=== PATIENT | female | born 1940 | race Hispanic/Latino ===

== ENCOUNTER 2018-01-03 22:42 | Observation (INO) | payer MEDICARE ==
[2018-01-03 22:43] VITALS: PULSE 60
[2018-01-03 22:53] VITALS: BMI 31.4
[2018-01-03 23:47] LABS: ALB/GLOB RATIO 1.3 (1.1-1.8); ALBUMIN 4.4 g/dL (3.0-4.8); ALT/SGPT 33 U/L (7-56); AMYLASE 47 U/L (35-125); AST/SGOT 27 U/L (14-36); BLOOD UREA NITROGEN 18 mg/dL (7-21); CALCIUM 10.4 mg/dL (8.4-10.5); GFR AFRICAN-AMERICAN > 60; GFR NON-AFRICAN AMERICAN > 60; LIPASE 29 U/L (23-300)
[2018-01-03 23:57] LABS: TROPONIN I < 0.01 ng/mL
[2018-01-04 00:02] LABS: BASO # 0.02 K/mm3 (0.0-2.0); BASO % 0.3 % (0.0-3.0); EOS # 0.1 (0.0-0.7); EOS % 1.7 % (1.5-5.0); GRAN # 4.73 (1.4-6.5); GRAN % 60.9 % (50.0-68.0); LYMPH # 2.5 (1.2-3.4); LYMPH % 32.1 % (22.0-35.0); MEAN CORPUSCULAR HEMOGLOBIN 29.5 pg (25.0-35.0); MEAN CORPUSCULAR HGB CONC 33.9 g/dl (31.0-37.0); MEAN PLATELET VOLUME 9.5 fl (7.0-11.0); MONO # 0.4 (0.1-0.6); RBC 4.4 10^6/uL (3.5-6.1); RED CELL DISTRIBUTION WIDTH 14.1 % (11.5-14.5); WHITE BLOOD COUNT 7.8 10^3/ul (4.5-11.0)
[2018-01-04 00:24] LABS: INR 0.99 (0.93-1.08); PARTIAL THROMBOPLASTIN TIME 28.6 Seconds (25.1-36.5); PROTHROMBIN TIME 11.3 SECONDS (9.4-12.5)
--- NOTE | 2018-01-04 00:39 | ED PDOC ---
Arrival/HPI - General Chief Complaint: GI Problem Time Seen by Provider: 01/03/18 22:48 Historian: Patient - History of Present Illness Narrative History of Present Illness (Text): 01/04/18 00:36 77 year old female, whose past medical history includes a history of a GI bleed , who presents to the emergency department complaining of bright red blood per rectum for several hours. Patient denies any fevers, chills, chest pain, shortness of breath, abdominal pain, nausea, vomiting, diarrhea, back pain, neck pain, headache, dizziness, or any other complaint. Time/Duration: 4-6 hours Symptom Onset: Sudden Symptom Course: Unchanged Activities at Onset: Light Context: Home Past Medical History - Provider Review Nursing Documentation Reviewed: Yes - Reproductive Menopause: Yes - Cardiac Hx Pacemaker: No - Pulmonary Hx Asthma: Yes - Neurological Hx Paralysis: No - Hematological/Oncological Hx Blood Transfusions: No - Musculoskeletal/Rheumatological Hx Musculoskeletal Disorders: Yes - Gastrointestinal Hx Gastrointestinal Disorders: Yes - Psychiatric Hx Emotional Abuse: No Hx Physical Abuse: No Hx Substance Use: No - Anesthesia Hx Anesthesia Reactions: No Hx Malignant Hyperthermia: No - Suicidal Assessment Feels Threatened In Home Enviroment: No Family/Social History - Physician Review Nursing Documentation Reviewed: Yes Family/Social History: Unknown Family HX Smoking Status: Former Smoker Hx Alcohol Use: No Hx Substance Use: No Hx Substance Use Treatment: No Allergies/Home Meds Allergies/Adverse Reactions: Allergies EGG Adverse Reaction (Severe, Verified 01/07/18 13:38) DIARRHEA Home Medications: Home Meds Medication Instructions Recorded Confirmed Alprazolam [Xanax] 0.25 mg PO BID PRN 06/13/15 01/07/18 Gabapentin [Neurontin] 300 mg PO BID 06/13/15 01/07/18 Hydrochlorothiazide [HCTZ] 25 mg PO DAILY 06/13/15 01/07/18 Morphine [Morphine Immediate 15 mg PO Q12H 06/13/15 01/07/18 Release Tab] Levothyroxine Sodium [Levo-T] 25 mg PO DAILY 01/03/18 01/07/18 oxyCODONE/Acetaminophen [Percocet 1 tab PO BID 01/03/18 01/07/18 5/325 mg Tab] Allopurinol [Zyloprim] 100 mg PO BID 01/05/18 01/07/18 Atorvastatin [Lipitor] 20 mg PO QPM 01/05/18 01/07/18 Digoxin [Digoxin] 0.125 mg PO DAILY 01/05/18 01/07/18 Cyclobenzaprine [Flexeril] 5 mg PO DAILY 01/07/18 01/07/18 Esomeprazole Magnesium [Nexium] 40 mg PO DAILY 01/07/18 01/07/18 Review of Systems - Physician Review All systems were reviewed & negative as marked: Yes - Review of Systems Constitutional: Normal Eyes: Normal ENT: Normal Respiratory: Normal. absent: SOB, Cough Cardiovascular: Normal. absent: Chest Pain Gastrointestinal: Normal, Hematochezia. absent: Abdominal Pain, Diarrhea, Nausea, Vomiting Genitourinary Female: Normal. absent: Dysuria, Frequency Musculoskeletal: Normal. absent: Back Pain, Neck Pain Skin: Normal. absent: Rash Neurological: Normal. absent: Headache Endocrine: Normal Hemo/Lymphatic: Normal Psychiatric: Normal Physical Exam Vital Signs Reviewed: Yes Vital Signs Temp Pulse Resp BP Pulse Ox 01/04/18 03:22 78 18 127/76 97 01/03/18 22:58 98.2 F 105 H 22 175/109 H 92 L Temperature: Afebrile Blood Pressure: Hypertensive Pulse: Tachycardic Respiratory Rate: Normal Appearance: Positive for: Well-Appearing, Non-Toxic, Comfortable Pain Distress: None Mental Status: Positive for: Alert and Oriented X 3 - Systems Exam Head: Present: Atraumatic, Normocephalic Pupils: Present: PERRL Extroacular Muscles: Present: EOMI Conjunctiva: Present: Normal Mouth: Present: Moist Mucous Membranes Neck: Present: Normal Range of Motion. No: Meningeal Signs, MIDLINE TENDERNESS , Paraspinal Tenderness Respiratory/Chest: Present: Clear to Auscultation, Good Air Exchange. No: Respiratory Distress, Accessory Muscle Use Cardiovascular: Present: Regular Rate and Rhythm, Normal S1, S2. No: Murmurs Abdomen: No: Tenderness, Distention, Peritoneal Signs Rectal: Present: Hemorrhoids. No: Occult Blood Back: Present: Normal Inspection. No: CVA Tenderness, Midline Tenderness, Paraspinal Tenderness Upper Extremity: Present: Normal Inspection. No: Cyanosis, Edema Lower Extremity: Present: Normal Inspection. No: Edema, CALF TENDERNESS Neurological: Present: GCS=15, CN II-XII Intact, Speech Normal Skin: Present: Warm, Dry, Normal Color. No: Rashes Psychiatric: Present: Alert, Oriented x 3, Normal Insight, Normal Concentration Medical Decision Making ED Course and Treatment: 01/04/18 00:40 Impression: 77 year old female presents to the emergency department complaining of bright red blood per rectum. Plan: -- Labs -- EKG -- CXR -- Reassess and disposition case d/w dr soler will obs for gi bleed Progress Notes: - Lab Interpretations Lab Results: 01/03/18 23:15 01/03/18 23:15 Lab Results 01/03/18 23:15: Sodium 141, Potassium 3.6, Chloride 99, Carbon Dioxide 30, Anion Gap 16, BUN 18, Creatinine 0.9, Est GFR ( Amer) > 60, Est GFR (Non- Af Amer) > 60, Random Glucose 132 H, Calcium 10.4, Total Bilirubin 0.8, AST 27, ALT 33, Alkaline Phosphatase 104, Lactate Dehydrogenase 420, Total Creatine Kinase 56, Troponin I < 0.01, Total Protein 7.7, Albumin 4.4, Globulin 3.3, Albumin/Globulin Ratio 1.3, Amylase 47, Lipase 29 01/03/18 23:15: PT 11.3, INR 0.99, APTT 28.6 01/03/18 23:15: WBC 7.8, RBC 4.40, Hgb 13.0, Hct 38.3, MCV 87.0, MCH 29.5, MCHC 33.9, RDW 14.1, Plt Count 175, MPV 9.5, Gran % 60.9, Lymph % (Auto) 32.1, Dickson % (Auto) 5.0, Eos % (Auto) 1.7, Baso % (Auto) 0.3, Gran # 4.73, Lymph # (Auto) 2.5, Dickson # (Auto) 0.4, Eos # (Auto) 0.1, Baso # (Auto) 0.02 - RAD Interpretation Radiology Orders: 01/03/18 23:05 CHEST PORTABLE [RAD] Stat - EKG Interpretation EKG Interpretation (Text): 01/04/18 04:[address] s changes - Medication Orders Current Medication Orders: Discontinued Medications Acetaminophen (Tylenol 325mg Tab) 650 mg PO Q4H PRN PRN Reason: Pain, Mild (1-3) Allopurinol (Zyloprim) 100 mg PO DAILY [facility] Last Admin: 01/05/18 10:33 Dose: 100 mg Alprazolam (Xanax) 0.25 mg PO BID PRN; Protocol PRN Reason: Anxiety Stop: 01/11/18 07:54 Atorvastatin Calcium (Lipitor) 20 mg PO HS [facility] Last Admin: 01/04/18 21:06 Dose: 20 mg Hydrochlorothiazide (Hydrodiuril) 25 mg PO DAILY [facility] Last Admin: 01/05/18 10:33 Dose: 25 mg Sodium Chloride (Sodium Chloride 0.9%) 1,000 mls @ 100 mls/hr IV .Q10H STA Stop: 01/04/18 11:16 Last Admin: 01/04/18 04:25 Dose: 100 mls/hr eMAR Start Stop Document 01/04/18 04:25 BR (Rec: 01/04/18 04:26 BR [id number]) Intravenous Solution Start Date 01/04/18 Start Time 04:25 Sodium Chloride (Sodium Chloride 0.9%) 1,000 mls @ 80 mls/hr IV .[id number] [facility] Last Admin: 01/05/18 00:10 Dose: 80 mls/hr eMAR Start Stop Document 01/05/18 00:10 [employer] (Rec: 01/05/18 00:10 [employer] [id number]) Intravenous Solution Start Date 01/05/18 Start Time 00:10 Levothyroxine Sodium (Synthroid) 25 mcg PO DAILY [facility] Last Admin: 01/05/18 10:33 Dose: 25 mcg Morphine Sulfate (Morphine Immediate Release Tab) 15 mg PO Q12H [facility] Last Admin: 01/05/18 10:33 Dose: 15 mg MAR Pain Assessment Document 01/05/18 10:33 ANTOALL (Rec: 01/05/18 10:33 ANTOALL [id number] ) Pain Reassessment Is this a pain reassessment? Yes Sleep Is patient sleeping during reassessment? No Presence of Pain Presence of Pain No Non-Formulary Medication (Allopurinol [Allopurinol]) 100 mg PO DAILY [facility] Last Admin: 01/05/18 10:33 Dose: Non-Formulary Medication (Hydrochlorothiazide [Hctz]) 25 mg PO DAILY [facility] Oxycodone/Acetaminophen (Percocet 5/325 Mg Tab) 1 tab PO BID PRN PRN Reason: Pain, moderate (4-7) Stop: 01/07/18 10:01 Pneumococcal Polyvalent Vaccine (Pneumovax 23 Vaccine) 0.5 ml IM .ONCE ONE Stop: 01/04/18 05:07 - Scribe Statement The provider has reviewed the documentation as recorded by the Aloibindra Keys All medical record entries made by the Aloibindra were at my direction and personally dictated by me. I have reviewed the chart and agree that the record accurately reflects my personal performance of the history, physical exam, medical decision making, and the department course for this patient. I have also personally directed, reviewed, and agree with the discharge instructions and disposition. Disposition/Present on Arrival - Present on Arrival Any Indicators Present on Arrival: No History of DVT/PE: No History of Uncontrolled Diabetes: No Urinary Catheter: No History of Decub. Ulcer: No History Surgical Site Infection Following: None - Disposition Have Diagnosis and Disposition been Completed?: Yes Diagnosis: Lower GI bleed Disposition: HOSPITALIZED Disposition Time: 01:15 Condition: FAIR
[2018-01-04] MEDS ORDERED: Sodium Chloride 0.9% 1,000 ML IV STA (01:17)
[2018-01-04] MEDS ORDERED: Pneumococcal 23-Valent Vaccine IM ONE (05:06)
[2018-01-04 07:45] VITALS: RESP 20
[2018-01-04] MEDS ORDERED: Oxycodone/Acetaminophen 5/325 mg Tab PO PRN (07:53)
[2018-01-04] MEDS: ALLOPURINOL 100 MG PO SCH (09:30)
[2018-01-04] MEDS: Levothyroxine 25 MCG TAB PO SCH (09:30)
[2018-01-04] MEDS: Morphine 15 mg Immediate Release Tab PO SCH ×2 (09:30→21:06)
[2018-01-04 09:40] LABS: HEMOGLOBIN 12.2 g/dL (12.0-16.0); MEAN CELL VOLUME 87.8 fl (80.0-105.0); MEAN CORPUSCULAR HEMOGLOBIN 28.7 pg (25.0-35.0); MEAN CORPUSCULAR HGB CONC 32.7 g/dl (31.0-37.0); MEAN PLATELET VOLUME 9.3 fl (7.0-11.0); RBC 4.25 10^6/uL (3.5-6.1); RED CELL DISTRIBUTION WIDTH 14.1 % (11.5-14.5); WHITE BLOOD COUNT 7.5 10^3/ul (4.5-11.0)
[2018-01-04] MEDS ORDERED: Levothyroxine 25 MCG TAB PO SCH (10:00)
[2018-01-04] MEDS ORDERED: Non Formulary Medication (Hydrochlorothiazide [Hctz] 25 MG) PO SCH (10:00)
--- NOTE | 2018-01-04 13:45 | CARD ---
APPROVED REPORT EKG Measurement Heart [id number] <Conclusion> Normal sinus rhythm with sinus arrhythmia Nonspecific ST abnormality Abnormal ECG
--- NOTE | 2018-01-04 16:20 | RAD ---
HISTORY: gi bleed COMPARISON: Comparison chest dated 04/14/2012 FINDINGS: LUNGS: Limited study due to poor inspiration and patient rotation/side bending to the right. Questionable patchy bibasilar atelectasis. Developing infiltrates could be excluded followup radiographs. Questionable small bilateral effusions PLEURA: No significant pleural effusion identified, no pneumothorax apparent. CARDIOVASCULAR: Cardiomegaly OSSEOUS STRUCTURES: Levoscoliosis centered in the upper thoracic region VISUALIZED UPPER ABDOMEN: Normal. OTHER FINDINGS: None. IMPRESSION: Limited study due to poor inspiration and patient rotation/side bending to the right. Questionable patchy bibasilar atelectasis. Developing infiltrates could be excluded followup radiographs. Questionable small bilateral effusions
[2018-01-04] MEDS ORDERED: Sodium Chloride 0.9% 1,000 ML IV SCH (19:15)
--- NOTE | 2018-01-05 05:55 | HP ---
DATE OF EXAM: 01/04/2018 CHIEF COMPLAINT AND HISTORY OF PRESENT ILLNESS: This is a 77-year-old female who is coming into the hospital because of rectal bleeding. The patient was in her usual state and she was having a rectal bleeding. She said that it was bright red blood, it happened several hours prior to coming to the hospital. She denies any abdominal pain. No fevers or chills. No nausea, no vomiting. No weakness in the arms or the legs. She denies any chest pain or shortness of breath. No palpitations. No dysarthria or dysphagia. All other review of symptoms are within normal limits except as mentioned. ALLERGIES: NO KNOWN DRUG ALLERGIES. HOME MEDICATIONS: Have been reviewed on the SEP. PAST MEDICAL HISTORY: 1. GI bleed. 2. Chronic back pain, on narcotics. 3. Osteoarthritis. 4. Dyslipidemia. 5. Diabetes type 2. 6. Hypertension. SOCIAL HISTORY: She has no history of smoking or drinking alcohol. FAMILY HISTORY: Noncontributory. PHYSICAL EXAMINATION: VITAL SIGNS: Temperature is 98.2, pulse of 105, blood pressure 175/109, respirations 22, O2 saturation 92%. Repeat blood pressure is 128/91. GENERAL: The patient lying in bed, uncomfortable, and in no acute distress. HEENT: Atraumatic and normocephalic. Anicteric sclerae. Moist mucosa. [place] conjunctivae. No oral lesions. NECK: No JVD, anterior and posterior adenopathy, thyromegaly, or bruits. CARDIOVASCULAR: S1 and S2 regular. No murmur, rubs, or gallop. LUNGS: Clear to auscultation bilaterally. No wheezes, rales, or rhonchi. ABDOMEN: Bowel sounds are positive. Soft, nontender and nondistended. No hepatosplenomegaly. No rebound and no guarding EXTREMITIES: No cyanosis, clubbing, or edema. NEUROLOGIC: No facial asymmetry. Tongue is midline. No uvula deviation. Power is 5/5 upper extremity and lower extremity. Sensation intact in upper extremity and lower extremity. PSYCHIATRIC: She is awake, alert and oriented x3. No anxiety or depression. She has normal affect. GENITOURINARY: No CVA tenderness. VASCULAR: 2+ pulses in the carotid pulses and pedal pulses. SKIN: No erythema or nodules SPINE: Shows normal curvature. BACK: She has scoliosis. LABORATORY DATA: White count of 7.8, hemoglobin 13, repeat hemoglobin is 12.2. She has a sodium of 141, potassium 3.6, creatinine 0.9, alk phos of 104. EKG shows sinus rhythm with a heart rate of 95, QTc is 454. Chest x-ray done shows it is a limited study due to poor inspiration. ASSESSMENT: 1. Rectal bleeding. 2. History of hemorrhoids. 3. History of peptic ulcer disease. 4. Diabetes type 2. 5. Hypertension. 6. Dyslipidemia. 7. Chronic back pain. PLAN: The patient is currently comfortable. Her hemoglobin has been stable. She is going to be seen by GI as Dr. Holt to evaluate the patient. Patient going to continue hydrochlorothiazide for hypertension. She is on morphine for her pain management. She is on normal saline. The patient is on Synthroid for hypothyroidism and is placed on a clear liquid diet. I will repeat her CBC again tomorrow. I will discontinue her IV fluids at this point. We will await further input from GI. Bo Ha MD
[2018-01-05 07:23] LABS: HEMOGLOBIN 12.1 g/dL (12.0-16.0); MEAN CELL VOLUME 87.8 fl (80.0-105.0); MEAN CORPUSCULAR HEMOGLOBIN 28.9 pg (25.0-35.0); MEAN CORPUSCULAR HGB CONC 32.9 g/dl (31.0-37.0); MEAN PLATELET VOLUME 9.4 fl (7.0-11.0); RBC 4.19 10^6/uL (3.5-6.1); RED CELL DISTRIBUTION WIDTH 14.2 % (11.5-14.5); WHITE BLOOD COUNT 6.5 10^3/ul (4.5-11.0)
[2018-01-05 08:02] VITALS: BP 149/75; PULSE 82; TEMP 97.4; O2SAT 96
--- NOTE | 2018-01-05 10:18 | PN ---
DATE: 01/05/2018 SUBJECTIVE: The patient has no complaints of any chest pain, no shortness of breath, no headaches or dizziness. PHYSICAL EXAMINATION VITAL SIGNS: Temperature is 97.4, pulse of 82, blood pressure is 149/75, respirations 20. GENERAL: The patient is lying in bed, flat, comfortable. HEENT: No oral lesion. Anicteric sclerae. Moist mucosa. NECK: No JVD, adenopathy, or thyromegaly. CARDIOVASCULAR: S1 and S2, regular. No murmurs, rubs, or gallops. LUNGS: Clear to auscultation bilaterally. No wheeze, rales, or rhonchi. ABDOMEN: Bowel sounds are positive, soft, nontender and nondistended. EXTREMITIES: No cyanosis, clubbing or edema. LABORATORY DATA: White count of 6.5, hemoglobin 12.1, creatinine 0.9. ASSESSMENT: 1. Rectal bleeding. 2. History of hemorrhoids. 3. History of peptic ulcer disease. 4. Diabetes type 2. 5. Hypertension. 6. Dyslipidemia. 7. Chronic back pain. PLAN: The patient is on hydrochlorothiazide for hypertension. She is on Lipitor for dyslipidemia. The patient is on morphine for pain. She is on Synthroid for hypothyroidism. The patient is on IV fluids with normal saline. She is going to be on Xanax. Her hemoglobin has been stable. She is going to get an endoscopy done today. Her last hemoglobin was 12.1 and it is 12.2 yesterday. She will get reevaluated after her endoscopy. Bo Ha MD
[2018-01-05] MEDS: Morphine 15 mg Immediate Release Tab PO SCH (10:33)
[2018-01-05] MEDS: Levothyroxine 25 MCG TAB PO SCH (10:33)
[2018-01-05] MEDS: ALLOPURINOL 100 MG PO SCH (10:33)
--- NOTE | 2018-01-05 12:31 | CP.PCM.PN ---
Subjective - Date & Time of Evaluation Date of Evaluation: 01/05/18 Time of Evaluation: 07:00 - Subjective Subjective: GI Progress Note for Kishan Castillo PGY2 Patient seen and examined at bedside. There were no acute overnight events as per nursing staff. Patient did not have any more episodes of melena or blood per rectum overnight. Patient denies chest pain, shortness of breath, nausea/ vomiting/diarrhea, fever/chills, numbness/tingling, dysuria or hematuria. Objective - Vital Signs/Intake and Output Vital Signs (last 24 hours): Temp Pulse Resp BP Pulse Ox 97.4 F L 82 20 149/75 96 01/05/18 06:00 01/05/18 06:00 01/05/18 06:00 01/05/18 06:00 01/05/18 06:00 Intake and Output: 01/05/18 01/05/18 06:59 18:59 Intake Total 2660 Balance 2660 - Medications Medications: Current Medications Acetaminophen (Tylenol 325mg Tab) 650 mg PO Q4H PRN PRN Reason: Pain, Mild (1-3) Allopurinol (Zyloprim) 100 mg PO DAILY [facility] Last Admin: 01/05/18 10:33 Dose: 100 mg Alprazolam (Xanax) 0.25 mg PO BID PRN; Protocol PRN Reason: Anxiety Stop: 01/11/18 07:54 Atorvastatin Calcium (Lipitor) 20 mg PO HS [facility] Last Admin: 01/04/18 21:06 Dose: 20 mg Hydrochlorothiazide (Hydrodiuril) 25 mg PO DAILY [facility] Last Admin: 01/05/18 10:33 Dose: 25 mg Sodium Chloride (Sodium Chloride 0.9%) 1,000 mls @ 80 mls/hr IV .[id number] [facility] Last Admin: 01/05/18 00:10 Dose: 80 mls/hr Levothyroxine Sodium (Synthroid) 25 mcg PO DAILY [facility] Last Admin: 01/05/18 10:33 Dose: 25 mcg Morphine Sulfate (Morphine Immediate Release Tab) 15 mg PO Q12H [facility] Last Admin: 01/05/18 10:33 Dose: 15 mg Non-Formulary Medication (Allopurinol [Allopurinol]) 100 mg PO DAILY [facility] Last Admin: 01/05/18 10:33 Dose: Not Given Oxycodone/Acetaminophen (Percocet 5/325 Mg Tab) 1 tab PO BID PRN PRN Reason: Pain, moderate (4-7) Stop: 01/07/18 10:01 - Labs Labs: 01/05/18 06:51 PT 11.3 SECONDS (9.4-12.5) 01/03/18 23:15 INR 0.99 (0.93-1.08) 01/03/18 23:15 APTT 28.6 Seconds (25.1-36.5) 01/03/18 23:15 - Constitutional Appears: No Acute Distress - Head Exam Head Exam: ATRAUMATIC, NORMAL INSPECTION, NORMOCEPHALIC - Eye Exam Eye Exam: Normal appearance, PERRL Pupil Exam: NORMAL ACCOMODATION - ENT Exam ENT Exam: Mucous Membranes Moist - Respiratory Exam Respiratory Exam: Clear to Ausculation Bilateral, NORMAL BREATHING PATTERN. absent: Rales, Rhonchi, Wheezes - Cardiovascular Exam Cardiovascular Exam: REGULAR RHYTHM, +S1, +S2. absent: Gallop, Rubs, Murmur - GI/Abdominal Exam GI & Abdominal Exam: Soft, Normal Bowel Sounds. absent: Rigid, Tenderness, Mass , Rebound - Extremities Exam Extremities Exam: Normal Inspection. absent: Calf Tenderness, Pedal Edema - Neurological Exam Neurological Exam: Alert, Awake, CN II-XII Intact - Skin Skin Exam: Dry, Warm Assessment and Plan - Assessment and Plan (Free Text) Assessment: This is a 77yo female with past medical history of chronic back pain, OA, HTN, dyslipidemia, and GI bleed who was admitted for 1. Rectal bleeding/Melena - Patient reported using NSAIDs at home - Hgb is normal and stable - Colonoscopy in 2014 showed diverticulosis, 8mm polyp (tubular adenoma), and internal hemorrhoids 2. HTN 3. OA 4, Chronic back pain (on Percocet and morphine at home) 5. Dyslipidemia Plan: Hgb has been stable. Avoid NSAIDs. Plan is for patient to be discharged home and have outpatient EGD tomorrow. She will be discharged home with PPI. Case seen, discussed and reviewed with Dr. Holt. Kishan Moore PGY2
== END 2018-01-05 12:51 | disposition home or self-care (01) ==
LOC: ED 22:42 → ERH 01-04 01:16 → 5RSO 01-04 03:38
PROVIDERS: ADMIT Internal Medicine Nephrology; ATTEND Internal Medicine Nephrology
DX: K62.5 Hemorrhage of anus and rectum (principal); E11.9 Type 2 diabetes mellitus without complications; E78.5 Hyperlipidemia, unspecified; G89.29 Other chronic pain; M54.9 Dorsalgia, unspecified; I10 Essential (primary) hypertension; J45.909 Unspecified asthma, uncomplicated; Z79.891 Long term (current) use of opiate analgesic; Z87.11 Personal history of peptic ulcer disease; M19.90 Unspecified osteoarthritis, unspecified site; Z86.010 Personal history of colon polyps
CPT/HCPCS: 36415; 71045; 80053; 82150; 82550; 83615; 83690; 84484; 85025; 85027; 85610; 85730; 86850; 86900; 93005; 99285; G0378; J7030

== ENCOUNTER 2018-01-06 12:39 | Day surgery (SDC) | payer MEDICARE ==
[2018-01-05 13:32] VITALS: BMI 27.9
[2018-01-06] MEDS ORDERED: Etomidate 20 mg/10ml Inj IV ONE (15:03)
[2018-01-06 15:42] VITALS: RESP 18
[2018-01-06] MEDS ORDERED: Sodium Chloride 0.9% 1,000 ML IV SCH (15:45)
[2018-01-06 16:09] LABS: HEMOGLOBIN 11.6 g/dL (12.0-16.0); MEAN CELL VOLUME 87.6 fl (80.0-105.0); MEAN CORPUSCULAR HEMOGLOBIN 29.3 pg (25.0-35.0); MEAN CORPUSCULAR HGB CONC 33.4 g/dl (31.0-37.0); MEAN PLATELET VOLUME 8.9 fl (7.0-11.0); RBC 3.96 10^6/uL (3.5-6.1); WHITE BLOOD COUNT 8.6 10^3/ul (4.5-11.0)
[2018-01-06 16:21] VITALS: TEMP 98.1; O2SAT 96
[2018-01-06 17:09] VITALS: BP 146/76; PULSE 73
== END 2018-01-06 17:09 | disposition home or self-care (01) ==
LOC: ENDO 12:39
PROVIDERS: ATTEND Internal Medicine Gastroenterology
DX: K25.9 Gastric ulcer, unspecified as acute or chronic, without hemorrhage or perforation (principal); D50.9 Iron deficiency anemia, unspecified; K44.9 Diaphragmatic hernia without obstruction or gangrene; K29.50 Unspecified chronic gastritis without bleeding; E11.9 Type 2 diabetes mellitus without complications; I10 Essential (primary) hypertension; E78.5 Hyperlipidemia, unspecified
CPT/HCPCS: 36415; 43239; 82948; 85027; 88305; 88342; J3010; J7030; J7040

== ENCOUNTER 2018-01-07 14:51 | Day surgery (SDC) | payer MEDICARE ==
[2018-01-07 15:30] VITALS: BP 144/92; PULSE 85; RESP 16; TEMP 98.4; O2SAT 92
[2018-01-07 15:43] VITALS: BMI 27.9
== END 2018-01-07 16:07 | disposition home or self-care (01) ==
LOC: ENDO 14:51
PROVIDERS: ATTEND Internal Medicine Gastroenterology
DX: K92.1 Melena (principal); K64.5 Perianal venous thrombosis; K64.4 Residual hemorrhoidal skin tags; M54.9 Dorsalgia, unspecified; G89.29 Other chronic pain
CPT/HCPCS: 45378; J7040

== ENCOUNTER 2018-04-03 06:45 | Day surgery (SDC) | payer MEDICARE ==
[2018-04-03] MEDS ORDERED: Propofol 10 mg/ml Inj (20 ML) ONE ×2 (09:15→09:26)
[2018-04-03] MEDS ORDERED: Midazolam 2 MG/2 ML VIAL ONE (09:15)
[2018-04-03] MEDS ORDERED: Sodium Chloride 0.9% 1,000 ML IV SCH (10:30)
[2018-04-03 11:22] VITALS: BP 133/76; PULSE 79; RESP 18; TEMP 98.3; O2SAT 99
== END 2018-04-03 11:54 | disposition home or self-care (01) ==
LOC: ENDO 06:45
PROVIDERS: ATTEND Internal Medicine Gastroenterology
DX: K29.50 Unspecified chronic gastritis without bleeding (principal); K44.9 Diaphragmatic hernia without obstruction or gangrene; D12.3 Benign neoplasm of transverse colon; K57.30 Diverticulosis of large intestine without perforation or abscess without bleeding; K64.8 Other hemorrhoids
CPT/HCPCS: 43239; 45385; 88305; 88342; J2001; J2250; J2704; J3010; J7030; J7040

== ENCOUNTER 2018-07-30 03:30 | Emergency (ER) | payer MEDICARE ==
[2018-07-30 03:32] VITALS: PULSE 60
[2018-07-30 04:02] VITALS: BMI 29.8
--- NOTE | 2018-07-30 04:13 | ED PDOC ---
Arrival/HPI - General Time Seen by Provider: 07/30/18 03:47 Historian: Patient - History of Present Illness Narrative History of Present Illness (Text): 07/30/18 04:12 Marni Paredes is a 78 year old female, whose past medical history includes GI bleed, cholecystectomy, chronic back pain on Morphine, diabetes, hypertension, and hyperlipidemia, who presents to the emergency department accompanied by daughter complaining of dark stool and abdominal pain. Patient states she woke up this morning with chills/shakiness and had an episode of dark watery diarrhea. Patient also reports associated mild RLQ pain. Patient notes she recently underwent a colonoscopy and had 1 polyp removed. Patient denies any fever, chest pain, shortness of breath, urinary symptoms, back pain, neck pain, headache, dizziness, or any other complaints. PMD: Dr. Ha GI: Dr. Holt Symptom Onset: Gradual Symptom Course: Unchanged Activities at Onset: Light Context: Home Past Medical History - Provider Review Nursing Documentation Reviewed: Yes - Cardiac Hx Pacemaker: No - Pulmonary Hx Asthma: Yes - Neurological Hx Paralysis: No - HEENT Other/Comment: B/L cataracts Sx - Endocrine/Metabolic Hx Diabetes Mellitus Type 2: No (Pt denies) Hx Hypothyroidism: Yes - Hematological/Oncological Hx Blood Transfusions: Yes Hx Blood Transfusion Reaction: No - Musculoskeletal/Rheumatological Hx Musculoskeletal Disorders: Yes - Gastrointestinal Hx Gastrointestinal Disorders: Yes - Psychiatric Hx Emotional Abuse: No Hx Physical Abuse: No Hx Substance Use: No - Surgical History Other/Comment: Right hand Sx (age 11), B/L cataract Sx, Polyps removal,Spinal Sx (age 11) - Anesthesia Hx Anesthesia Reactions: No Hx Malignant Hyperthermia: No - Suicidal Assessment Feels Threatened In Home Enviroment: No Family/Social History - Physician Review Nursing Documentation Reviewed: Yes Family/Social History: Unknown Family HX Smoking Status: Never Smoked Hx Alcohol Use: No Hx Substance Use: No Hx Substance Use Treatment: No Allergies/Home Meds Allergies/Adverse Reactions: Allergies Influenza Virus Vaccines Allergy (Verified 07/30/18 04:03) RASH EGG Adverse Reaction (Severe, Verified 07/30/18 04:03) DIARRHEA Home Medications: Home Meds Medication Instructions Recorded Confirmed RX: Alprazolam [Xanax] 0.25 mg PO BID PRN 06/13/15 04/03/18 RX: Gabapentin [Neurontin] 300 mg PO BID 06/13/15 04/03/18 RX: Hydrochlorothiazide [HCTZ] 25 mg PO DAILY 06/13/15 04/03/18 RX: Morphine [Morphine Immediate 15 mg PO Q12H 06/13/15 04/03/18 Release Tab] RX: Levothyroxine Sodium [Levo-T] 25 mg PO BID 01/03/18 04/03/18 RX: oxyCODONE/Acetaminophen 1 tab PO BID 01/03/18 04/03/18 [Percocet 5/325 mg Tab] Atorvastatin [Lipitor] 20 mg PO QPM 01/05/18 04/03/18 RX: Allopurinol [Zyloprim] 100 mg PO BID 01/05/18 04/03/18 Cyclobenzaprine [Flexeril] 5 mg PO DAILY 01/07/18 04/03/18 Esomeprazole Magnesium [Nexium] 40 mg PO DAILY 01/07/18 04/03/18 Ergocalciferol (Vitamin D2) 2,000 unit PO DAILY 03/31/18 04/03/18 [Vitamin D2] Review of Systems - Physician Review All systems were reviewed & negative as marked: Yes - Review of Systems Constitutional: Other (+chills). absent: Fevers Eyes: Normal ENT: Normal Respiratory: Normal. absent: SOB, Cough Cardiovascular: Normal. absent: Chest Pain Gastrointestinal: Abdominal Pain, Stool Changes, Diarrhea Genitourinary Female: Normal. absent: Dysuria, Frequency, Hematuria, Urine Output Changes, Vaginal Bleeding Musculoskeletal: Normal. absent: Arthralgias, Back Pain, Neck Pain Skin: Normal. absent: Rash Neurological: Normal. absent: Headache, Dizziness Endocrine: Normal Hemo/Lymphatic: Normal Psychiatric: Normal Physical Exam Vital Signs Reviewed: Yes Temperature: Afebrile Blood Pressure: Hypertensive Pulse: Regular Respiratory Rate: Normal Appearance: Positive for: Well-Appearing, Non-Toxic, Comfortable Pain Distress: None Mental Status: Positive for: Alert and Oriented X 3 - Systems Exam Head: Present: Atraumatic, Normocephalic Pupils: Present: PERRL Extroacular Muscles: Present: EOMI Conjunctiva: Present: Normal Mouth: Present: Moist Mucous Membranes Neck: Present: Normal Range of Motion Respiratory/Chest: Present: Clear to Auscultation, Good Air Exchange. No: Respiratory Distress, Accessory Muscle Use Cardiovascular: Present: Regular Rate and Rhythm, Normal S1, S2. No: Murmurs Abdomen: No: Tenderness, Distention, Peritoneal Signs Back: Present: Normal Inspection Upper Extremity: Present: Normal Inspection. No: Cyanosis, Edema Lower Extremity: Present: Normal Inspection. No: Edema Neurological: Present: GCS=15, CN II-XII Intact, Speech Normal Skin: Present: Warm, Dry, Normal Color. No: Rashes Psychiatric: Present: Alert, Oriented x 3, Normal Insight, Normal Concentration Medical Decision Making ED Course and Treatment: 07/30/18 04:12 Impression: 78 year old female complaining of chills, dark watery diarrhea, shaking, and mild RLQ pain. Plan: -- CT Abdomen and Pelvis -- EKG -- Labs, cardiac enzymes, amylase, lipase, blood cultures -- UA -- Reassess and disposition Prior Visits: Notes and results from previous visits were reviewed. Progress Notes: Reviewed EKG, NSR at 77 bpm. 1st degree AV block. Non-specific T wave abnormality. case endorsed to dr freitas awaiting ct scan and dispo - EKG Interpretation Interpreted by ED Physician: Yes Type: 12 lead EKG - Scribe Statement The provider has reviewed the documentation as recorded by the Jonah Cervantes Provider Scribe Attestation: All medical record entries made by the Scribe were at my direction and personally dictated by me. I have reviewed the chart and agree that the record accurately reflects my personal performance of the history, physical exam, medical decision making, and the department course for this patient. I have also personally directed, reviewed, and agree with the discharge instructions and disposition. Disposition/Present on Arrival - Present on Arrival Any Indicators Present on Arrival: No History of DVT/PE: No History of Uncontrolled Diabetes: No Urinary Catheter: No History Surgical Site Infection Following: None - Disposition Have Diagnosis and Disposition been Completed?: Yes Diagnosis: Abdominal pain, UTI (urinary tract infection) Disposition: HOME/ ROUTINE Disposition Time: 07:00 Condition: IMPROVED Discharge Instructions (ExitCare): Acute Abdomen (Belly Pain), Adult (DC), Nausea and Vomiting, Adult (DC) Print Language: ESTONIAN Additional Instructions: Please follow up with Dr. Ware in the next 1-2 days Please follow up with your infusion nurse in the next 3-5 days Prescriptions: Cephalexin [Keflex] 500 mg PO BID 5 Days #10 capsule Referrals: Bo Ha MD [Primary Care Provider] - Follow up with primary Forms: [employer] (Uzbek)
[2018-07-30 04:21] VITALS: RESP 18
[2018-07-30 04:44] LABS: INR 1.02; PARTIAL THROMBOPLASTIN TIME 30.1 Seconds (25.1-36.5); PROTHROMBIN TIME 11.6 SECONDS (9.4-12.5)
[2018-07-30 04:46] LABS: ALB/GLOB RATIO 1.4 (1.1-1.8); ALBUMIN 4.6 g/dL (3.0-4.8); ALT/SGPT 42 U/L (7-56); AMYLASE 58 U/L (35-125); AST/SGOT 30 U/L (14-36); BLOOD UREA NITROGEN 24 mg/dL (7-21); CALCIUM 10.9 mg/dL (8.4-10.5); GFR NON-AFRICAN AMERICAN 48; LIPASE 83 U/L (23-300)
[2018-07-30 04:57] LABS: TROPONIN I < 0.01 ng/mL
[2018-07-30 05:00] LABS: BASO # 0.03 K/mm3 (0.0-2.0); BASO % 0.4 % (0.0-3.0); EOS # 0.1 (0.0-0.7); EOS % 1.7 % (1.5-5.0); GRAN # 5.74 (1.4-6.5); GRAN % 69.3 % (50.0-68.0); HEMOGLOBIN 12.8 g/dL (12.0-16.0); LYMPH % 23.8 % (22.0-35.0); MEAN CELL VOLUME 88.7 fl (80.0-105.0); MEAN CORPUSCULAR HEMOGLOBIN 28.9 pg (25.0-35.0); MEAN CORPUSCULAR HGB CONC 32.6 g/dl (31.0-37.0); MEAN PLATELET VOLUME 9.6 fl (7.0-11.0); MONO # 0.4 (0.1-0.6); MONO % 4.8 % (1.0-6.0); RBC 4.43 10^6/uL (3.5-6.1); RED CELL DISTRIBUTION WIDTH 13.7 % (11.5-14.5); WHITE BLOOD COUNT 8.3 10^3/uL (4.5-11.0)
[2018-07-30] MEDS ORDERED: Iohexol 240 (50 ml) ONE (05:16)
[2018-07-30 05:20] LABS: PH,URINE 6.5 (4.7-8.0); URINE BILIRUBIN NEGATIVE (NEGATIVE); URINE BLOOD NEGATIVE (NEGATIVE); URINE GLUCOSE (UA) NEGATIVE (NEGATIVE); URINE LEUKOCYTE ESTERASE MODERATE Leu/uL (NEGATIVE); URINE PROTEIN TRACE mg/dL (<30 mg/dL); URINE UROBILINOGEN 0.2 E.U./dL (<1 E.U./dL)
[2018-07-30 05:21] LABS: URINE APPEARANCE SL CLOUDY (CLEAR); URINE COLOR YELLOW (YELLOW)
[2018-07-30 05:44] LABS: URINE BACTERIA FEW /hpf; URINE RBC 0 - 2 /hpf (0-2)
--- NOTE | 2018-07-30 07:22 | ED PDOC ---
Physical Exam Vital Signs Temp Pulse Resp BP Pulse Ox 07/30/18 04:03 97.9 F 88 18 145/92 H 96 Medical Decision Making ED Course and Treatment: 07/30/18 07:[address] Hartman with patient pending CT a/p results. Patient requesting morphine. Labs unremarkable. - Lab Interpretations Lab Results: PT 11.6 SECONDS (9.4-12.5) 07/30/18 04:26 INR 1.02 07/30/18 04:26 APTT 30.1 Seconds (25.1-36.5) 07/30/18 04:26 Troponin I < 0.01 ng/mL 07/30/18 04:26 Total Bilirubin 0.9 mg/dL (0.2-1.3) 07/30/18 04:26 AST 30 U/L (14-36) 07/30/18 04:26 ALT 42 U/L (7-56) 07/30/18 04:26 Alkaline Phosphatase 99 U/L (38-126) 07/30/18 04:26 Total Protein 7.8 g/dL (5.8-8.3) 07/30/18 04:26 Albumin 4.6 g/dL (3.0-4.8) 07/30/18 04:26 Globulin 3.3 gm/dL 07/30/18 04:26 Albumin/Globulin Ratio 1.4 (1.1-1.8) 07/30/18 04:26 Amylase 58 U/L (35-125) 07/30/18 04:26 Lipase 83 U/L (23-300) 07/30/18 04:26 Urine Color Yellow (YELLOW) 07/30/18 04:58 Urine Appearance Sl cloudy (CLEAR) 07/30/18 04:58 Urine pH 6.5 (4.7-8.0) 07/30/18 04:58 Ur Specific Citra 1.015 (1.005-1.035) 07/30/18 04:58 Urine Protein Trace mg/dL (<30 mg/dL) H 07/30/18 04:58 Urine Glucose (UA) Negative mg/dL (NEGATIVE) 07/30/18 04:58 Urine Ketones Negative mg/dL (NEGATIVE) 07/30/18 04:58 Urine Blood Negative (NEGATIVE) 07/30/18 04:58 Urine Nitrate Negative (NEGATIVE) 07/30/18 04:58 Urine Bilirubin Negative (NEGATIVE) 07/30/18 04:58 Urine Urobilinogen 0.2 E.U./dL (<1 E.U./dL) 07/30/18 04:58 Ur Leukocyte Esterase Moderate Krystal/uL (NEGATIVE) H 07/30/18 04:58 Urine RBC 0 - 2 /hpf (0-2) 07/30/18 04:58 Urine WBC 2 - 5 /hpf (0-6) 07/30/18 04:58 Ur Epithelial Cells 1 - 3 /hpf (0-5) 07/30/18 04:58 Urine Bacteria Few /hpf (NONE) 07/30/18 04:58 - RAD Interpretation Narrative RAD Interpretations (Text): 07/30/18 09:10 CT of Abdomen/Pelvis reviewed by radiologist, shows: FINDINGS: 10.8 x 6.6 x 8.4 cm cystic area in the midline pelvis, just above the bladder and probably separate from the bladder, although large bladder diverticulum is not excluded. LUNG BASES: The lung bases appear clear. No pleural effusions are seen. LIVER: Unremarkable. GALLBLADDER AND BILE DUCTS: The gallbladder has been removed. No biliary ductal dilatation is evident. PANCREAS: Unremarkable. SPLEEN: Unremarkable. ADRENAL GLANDS: Unremarkable. KIDNEYS, URETERS, AND BLADDER: The kidneys appear within normal limits. There is no hydronephrosis or hydroureter. No urinary calculi are seen. STOMACH AND BOWEL: Large hiatal hernia. Sigmoid colon diverticulosis. No evidence of bowel obstruction. No evidence suggesting enteritis or colitis. APPENDIX: No evidence of acute appendicitis on CT examination. PERITONEUM: No free fluid. No free air. LYMPH NODES: No lymphadenopathy is evident. VASCULATURE: No evidence of abdominal aortic aneurysm. BONES: No aggressive appearing osseous lesion. No acute osseous pathology evident. Prominent dextroscoliosis and degenerative changes of the lumbar spine. IMPRESSION: Large midline pelvic cystic area, probably separate from the bladder, but large bladder diverticulum is not excluded. No acute intra-abdominal abnormality. Radiology Orders: 07/30/18 05:08 ABD & PELVIS PO CONTRAST ONLY [CT] Stat Quiller Machine Fixer: Radiologist Disposition/Present on Arrival - Present on Arrival Any Indicators Present on Arrival: No History of DVT/PE: No History of Uncontrolled Diabetes: No Urinary Catheter: No History of Decub. Ulcer: No History Surgical Site Infection Following: None - Disposition Have Diagnosis and Disposition been Completed?: Yes Diagnosis: Abdominal pain, UTI (urinary tract infection) Disposition: HOME/ ROUTINE Disposition Time: 09:30 Patient Plan: Discharge Patient Problems: Current Active Problems Problem Status Onset Abdominal pain Acute Condition: IMPROVED Discharge Instructions (ExitCare): Acute Abdomen (Belly Pain), Adult (DC), Nausea and Vomiting, Adult (DC) Print Language: LIBERIAN Additional Instructions: Please follow up with Dr. Ware in the next 1-2 days Please follow up with your geodetic engineer in the next 3-5 days Prescriptions: Cephalexin [Keflex] 500 mg PO BID 5 Days #10 capsule Referrals: Bo Ha MD [Primary Care Provider] - Follow up with primary Forms: [employer] (German)
[2018-07-30] MEDS ORDERED: Morphine 4 mg/ml ISec IVP STA (08:46)
[2018-07-30 08:53] VITALS: TEMP 98.3; O2SAT 97
--- NOTE | 2018-07-30 09:17 | CT ---
Date of service: 07/30/2018 PROCEDURE: CT Abdomen and Pelvis without intravenous contrast HISTORY: rlq pain COMPARISON: CT 05/31/2015 TECHNIQUE: Without contrast.. Contrast dose: Radiation dose: Total exam DLP = 629.2 mGy-cm. This CT exam was performed using one or more of the following dose reduction techniques: Automated exposure control, adjustment of the mA and/or kV according to patient size, and/or use of iterative reconstruction technique. FINDINGS: LOWER THORAX: There is a large hiatal hernia. The majority of the stomach is above the diaphragm. LIVER: Unremarkable. No gross lesion or ductal dilatation. GALLBLADDER AND BILE DUCTS: Gallbladder removed PANCREAS: Unremarkable. No gross lesion or ductal dilatation. SPLEEN: Unremarkable. ADRENALS: Unremarkable. No mass. KIDNEYS AND URETERS: Unremarkable. No hydronephrosis. No solid mass. VASCULATURE: Unremarkable. No aortic aneurysm. Aortic calcification BOWEL: Unremarkable. No obstruction. No gross mural thickening. APPENDIX: Unremarkable. Normal appendix. PERITONEUM: Unremarkable. No free fluid. No free air. LYMPH NODES: Unremarkable. No enlarged lymph nodes. BLADDER: Unremarkable. REPRODUCTIVE: There is a large cyst superior to the bladder measuring 11 x 6.6 x 8.6 cm. This was not present on the previous exam. This is most likely an ovarian cyst. This is unusual in this age group and follow-up is recommended to rule out a cystic neoplasm. There is also a 1.4 x 2.5 cm cyst in the left ovary BONES: Severe scoliosis convex to the right OTHER FINDINGS: The report concurs with the preliminary [facility] report IMPRESSION: There is a large cyst superior to the bladder measuring 11 x 6.6 x 8.6 cm. This was not present on the previous exam. This is most likely an ovarian cyst. This is unusual in this age group and follow-up is recommended to rule out a cystic neoplasm. There is also a 1.4 x 2.5 cm cyst in the left ovary
[2018-07-30 09:55] VITALS: BP 127/88; PULSE 72
--- NOTE | 2018-07-30 16:18 | CARD ---
APPROVED REPORT Date of service: 07/30/2018 EKG Measurement Heart [id number] <Conclusion> Sinus rhythm with 1st degree AV block Nonspecific T wave abnormality Prolonged QTc
== END 2018-07-30 09:58 | disposition home or self-care (01) ==
LOC: ED 03:30
DX: N39.0 Urinary tract infection, site not specified (principal); R10.9 Unspecified abdominal pain; I10 Essential (primary) hypertension; E11.9 Type 2 diabetes mellitus without complications; Z90.49 Acquired absence of other specified parts of digestive tract
CPT/HCPCS: 74176; 80053; 81001; 82150; 82550; 83615; 83690; 84484; 85025; 85610; 85730; 87040; 87086; 93005; 96374; 99284; J2270; Q9966

== ENCOUNTER 2018-12-08 12:19 | Outpatient (CLI) | payer MEDICARE | END 2018-12-08 12:20 | disposition home or self-care (01) | LOC: RAD 12:19 ==